=== PATIENT | male | born 1970 | race African-American/Black ===

== ENCOUNTER 2016-12-03 20:20 | Emergency (ER) | payer SELFPAY ==
[~2016-12-03] VITALS: Ht 175.3 cm; Wt 70.3 kg
[2016-12-03] MEDS ORDERED: KETOROLAC TROMETHAMINE 30 MG/ML INJ. IV ONE (21:00)
[2016-12-03] MEDS ORDERED: IV NORMAL SALINE 1000ML BAG 1,000 ML IV ONE (21:00)
[2016-12-03] MEDS ORDERED: cloNIDine HCL 0.1 MG TABLET PO ONE ×2 (21:00→22:15)
[2016-12-03 21:09] LABS: BASO # 0.1 x10^3/uL (0.0-0.2); BASO % 1 % (0-3); EOS % 3 % (0-3); HEMATOCRIT 42.2 % (39.0-53.0); HEMOGLOBIN 13.7 g/dL (13.0-17.5); LYMPH # 2.8 x10^3/uL (1.0-4.8); LYMPH % 44 % (24-48); MEAN CORPUSCULAR HEMOGLOBIN 25 pg (25-35); MEAN CORPUSCULAR HGB CONC 32 g/dL (31-37); MEAN CORPUSCULAR VOLUME 77 fL (79-100); MONO % 12 % (0-9); NEUT % 40 % (31-73); PLATELET COUNT 203 x10^3/uL (140-400); RED BLOOD COUNT 5.46 x10^6/uL (4.30-5.70); RED CELL DISTRIBUTION WIDTH 14.5 % (11.5-14.5); WHITE BLOOD COUNT 6.4 x10^3/uL (4.0-11.0)
[2016-12-03 21:11] LABS: BILIRUBIN,URINE NEGATIVE (NEG); GLUCOSE,URINE NEGATIVE (NEG); NITRITE,URINE NEGATIVE (NEG); PH,URINE 5.5; PROTEIN,URINE NEGATIVE (NEG-TRACE); UROBILINOGEN,URINE 0.2 mg/dL (0.2 mg/dL)
[2016-12-03 21:18] LABS: CALCIUM 9.5 mg/dL (8.5-10.1); CREATININE 1.2 mg/dL (0.7-1.3); GFR 78.2; POTASSIUM 3.3 mmol/L (3.5-5.1)
[2016-12-03 21:23] LABS: ALBUMIN 4.4 g/dL (3.4-5.0); ALBUMIN/GLOBULIN RATIO 1.2 (1.0-1.7); TOTAL BILIRUBIN 0.6 mg/dL (0.2-1.0); TOTAL PROTEIN 8.2 g/dL (6.4-8.2)
[2016-12-03 21:24] LABS: BACTERIA,URINE FEW /HPF (0-FEW); SQUAMOUS EPITHELIAL CELL,UR OCC /LPF; WBC,URINE OCC /HPF (0-4)
--- NOTE | 2016-12-03 21:27 | PHYS DOC ---
Past Medical History Past Medical History: No Pertinent History Additional Past Medical Histor: Does not go to PCP. Has been told high BP before, but no meds or FU Alcohol Use: Occasionally Drug Use: None Adult General Chief Complaint Chief Complaint: ABDOMINAL PAIN HPI HPI Patient is a 46 year old male with history of hypertension who presents today complaining of right groin/abdominal pain for 3 weeks. Patient states whenever he bends down or bears down he feels he has a bulge on the right groin area. Patient denies any fever nausea vomiting. Denies any urgency frequency dysuria. Review of Systems Review of Systems Constitutional: Denies fever or chills [] Eyes: Denies change in visual acuity, redness, or eye pain [] HENT: Denies nasal congestion or sore throat [] Respiratory: Denies cough or shortness of breath [] Cardiovascular: No additional information not addressed in HPI [] GI: right groin/abdominal pain : Denies dysuria or hematuria [] Musculoskeletal: Denies back pain or joint pain [] Integument: Denies rash or skin lesions [] Neurologic: Denies headache, focal weakness or sensory changes [] Endocrine: Denies polyuria or polydipsia [] Current Medications Current Medications Current Medications Medications (Trade) Dose Ordered Sig/Bienvenido Start Time Stop Time Status Last Admin Dose Admin Clonidine HCl (Catapres) 0.1 mg 1X ONCE 12/03/16 21:00 12/03/16 21:03 DC Iohexol (Omnipaque 300 Mg/ml) 75 ml 1X ONCE 12/03/16 21:30 12/03/16 21:31 DC 12/03/16 21:28 75 ML Ketorolac Tromethamine (Toradol) 30 mg 1X ONCE 12/03/16 21:00 12/03/16 21:03 DC 12/03/16 21:10 30 MG Sodium Chloride 1,000 ml @ 1,000 mls/hr 1X ONCE 12/03/16 21:00 12/03/16 21:59 12/03/16 21:10 1,000 MLS/HR Allergies Allergies Allergies Coded Allergies Type Severity Reaction Last Updated Verified No Known Drug Allergies 12/03/16 No Physical Exam Physical Exam Constitutional: Well developed, well nourished, no acute distress, non-toxic appearance. [] HENT: Normocephalic, atraumatic, bilateral external ears normal, oropharynx moist, no oral exudates, nose normal. [] Eyes: PERRLA, EOMI, conjunctiva normal, no discharge. [] Neck: Normal range of motion, no tenderness, supple, no stridor. [] Cardiovascular:Heart rate regular rhythm, no murmur [] Lungs & Thorax: Bilateral breath sounds clear to auscultation [] Abdomen: Flat abdomen. Bowel sounds normal, soft, no tenderness, no masses, no pulsatile masses. [] Male exam Right groin area appears to be swollen consistent with a hernia. Positive for right inguinal hernia on exam. Skin: Warm, dry, no erythema, no rash. [] Back: No tenderness, no CVA tenderness. [] Extremities: No tenderness, no cyanosis, no clubbing, ROM intact, no edema. [] Neurologic: Alert and oriented X 3, normal motor function, normal sensory function, no focal deficits noted. [] Psychologic: Affect normal, judgement normal, mood normal. [] Current Patient Data Vital Signs Vital Signs Date Time Temp Pulse Resp B/P (MAP) Pulse Ox O2 Delivery O2 Flow Rate FiO2 12/03/16 21:02 63 18 147/88 (107) 99 Room Air 12/03/16 20:32 99.0 99.0 Lab Values Laboratory Tests Test 12/03/16 20:36 White Blood Count 6.4 x10^3/uL (4.0-11.0) Red Blood Count 5.46 x10^6/uL (4.30-5.70) Hemoglobin 13.7 g/dL (13.0-17.5) Hematocrit 42.2 % (39.0-53.0) Mean Corpuscular Volume 77 fL (79-100) L Mean Corpuscular Hemoglobin 25 pg (25-35) Mean Corpuscular Hemoglobin Concent 32 g/dL (31-37) Red Cell Distribution Width 14.5 % (11.5-14.5) Platelet Count 203 x10^3/uL (140-400) Neutrophils (%) (Auto) 40 % (31-73) Lymphocytes (%) (Auto) 44 % (24-48) Monocytes (%) (Auto) 12 % (0-9) H Eosinophils (%) (Auto) 3 % (0-3) Basophils (%) (Auto) 1 % (0-3) Neutrophils # (Auto) 2.6 x10^3uL (1.8-7.7) Lymphocytes # (Auto) 2.8 x10^3/uL (1.0-4.8) Monocytes # (Auto) 0.8 x10^3/uL (0.0-1.1) Eosinophils # (Auto) 0.2 x10^3/uL (0.0-0.7) Basophils # (Auto) 0.1 x10^3/uL (0.0-0.2) Urine Collection Type Unknown Urine Color Yellow Urine Clarity Clear Urine pH 5.5 Urine Specific [place] 1.020 Urine Protein Negative mg/dL (NEG-TRACE) Urine Glucose (UA) Negative mg/dL (NEG) Urine Ketones (Stick) Negative mg/dL (NEG) Urine Blood Negative (NEG) Urine Nitrite Negative (NEG) Urine Bilirubin Negative (NEG) Urine Urobilinogen Dipstick 0.2 mg/dL (0.2 mg/dL) Urine Leukocyte Esterase Negative (NEG) Urine RBC 1-2 /HPF (0-2) Urine WBC Occ /HPF (0-4) Urine Squamous Epithelial Cells Occ /LPF Urine Bacteria Few /HPF (0-FEW) Urine Mucus Mod /LPF Sodium Level 139 mmol/L (136-145) Potassium Level 3.3 mmol/L (3.5-5.1) L Chloride Level 101 mmol/L (98-107) Carbon Dioxide Level 28 mmol/L (21-32) Anion Gap 10 (6-14) Blood Urea Nitrogen 15 mg/dL (8-26) Creatinine 1.2 mg/dL (0.7-1.3) Estimated GFR (Cockcroft-Gault) 78.2 BUN/Creatinine Ratio 13 (6-20) Glucose Level 92 mg/dL (70-99) Calcium Level 9.5 mg/dL (8.5-10.1) Total Bilirubin 0.6 mg/dL (0.2-1.0) Aspartate Amino Transferase (AST) 26 U/L (15-37) Alanine Aminotransferase (ALT) 22 U/L (16-63) Alkaline Phosphatase 83 U/L (46-116) Total Protein 8.2 g/dL (6.4-8.2) Albumin 4.4 g/dL (3.4-5.0) Albumin/Globulin Ratio 1.2 (1.0-1.7) Lipase 97 U/L (73-393) Laboratory Tests 12/03/16 20:36 Laboratory Tests 12/03/16 20:36 EKG EKG [] Radiology/Procedures Radiology/Procedures []PROCEDURE: CT ABD PELV W/ IV CONTRST ONLY Indication: Right lower quadrant pain for 3 weeks. Axial imaging through the abdomen and pelvis was performed after the administration of intravenous contrast. One or more of the following individualized dose reduction techniques were utilized for this examination: 1. Automated exposure control 2. Adjustment of the mA and/or kV according to patient size 3. Use of iterative reconstruction technique No prior studies are available for comparison. The lung bases are clear. The liver and gallbladder are unremarkable. The pancreas and spleen are unremarkable. No adrenal mass is detected. The kidneys are unremarkable. The aorta is nonaneurysmal. The small and large bowel loops are normal caliber. No obstruction is identified. No bowel wall thickening is seen. The appendix is unremarkable. There is no ascites. The bladder is unremarkable. IMPRESSION: No acute abnormality is detected. Electronically signed by: Gabriel Tavares MD (12/03/2016 9:42 PM) [facility] DICTATED and SIGNED BY: GABRIEL TAVARES MD DATE: 12/03/162139 CC: CYNTHIA ZARATE APRN; SANJEEV,STAFF ~ Course & Med Decision Making Course & Med Decision Making Pertinent Labs and Imaging studies reviewed. (See chart for details) Patient is in the ED with complaints of right groin/lower abdominal pain for 3 weeks. Symptoms suspicious for inguinal hernia on the right side. Patient's lab work is negative for any acute findings. Patient's significant other is warranted patient has appendicitis. CT of the abdomen and pelvic was ordered. CT of the abdomen and pelvic was negative for any acute findings. Provided patient a PCP for follow-up as well as a general surgeon. His blood pressure was in the 140s over 80s. He has history of hypertension. He is not on any medication and has never followed up. We talked about the importance of following up for high blood pressure. Dragon Disclaimer Dragon Disclaimer This electronic medical record was generated, in whole or in part, using a voice recognition dictation system. Departure Departure Impression: Primary Impression: Inguinal hernia, right Additional Impression: Hypertension Disposition: 01 HOME, SELF-CARE Condition: STABLE Referrals: NON,STAFF (PCP) follow up with a doctor from the list provided GABRIEL FIELDS MD follow up with the general surgeon for possible hernia to the right ingunial area in 2 weeks Patient Instructions: Hypertension, Inguinal Hernia, Adult Additional Instructions: You were seen with symptoms consistent of an inguinal hernia. Your blood pressure was also elevated in the 140s over 80s. Establish care with a primary care doctor. Follow-up as soon as he can. You can also follow up with the general surgeon provided for the inguinal hernia. Avoid lifting heavy items because they will make hernia issues worse. Problem Qualifiers Additional Impression: Hypertension Hypertension type: unspecified Qualified Codes: I10 - Essential (primary) hypertension CYNTHIA ZARATE OCCUPATIONAL HEALTH SPECIALIST Dec 03, 2016 21:27
[2016-12-03] MEDS ORDERED: IOHEXOL 300 MG/ML 75 ML VIAL IV ONE (21:30)
--- NOTE | 2016-12-03 21:46 | RAD ---
Indication: Right lower quadrant pain for 3 weeks. Axial imaging through the abdomen and pelvis was performed after the administration of intravenous contrast. One or more of the following individualized dose reduction techniques were utilized for this examination: 1. Automated exposure control 2. Adjustment of the mA and/or kV according to patient size 3. Use of iterative reconstruction technique No prior studies are available for comparison. The lung bases are clear. The liver and gallbladder are unremarkable. The pancreas and spleen are unremarkable. No adrenal mass is detected. The kidneys are unremarkable. The aorta is nonaneurysmal. The small and large bowel loops are normal caliber. No obstruction is identified. No bowel wall thickening is seen. The appendix is unremarkable. There is no ascites. The bladder is unremarkable. IMPRESSION: No acute abnormality is detected. Electronically signed by: Gabriel Tavares MD (12/03/2016 9:42 PM) [facility]
[2016-12-03 22:04] VITALS: BP 185/101
== END 2016-12-03 22:15 | disposition home or self-care (01) ==
LOC: ER 20:20
DX: K40.90 Unilateral inguinal hernia, without obstruction or gangrene, not specified as recurrent (principal); I10 Essential (primary) hypertension
CPT/HCPCS: 36415; 74177; 80053; 81001; 83690; 85027; 96361; 96374; 99285; J1885; J7030; Q9967

== ENCOUNTER 2017-05-16 11:43 | Emergency (ER) | payer BC | END 2017-05-16 13:04 | disposition home or self-care (01) | LOC: ER 11:43 | DX: K40.90 Unilateral inguinal hernia, without obstruction or gangrene, not specified as recurrent (principal); F17.200 Nicotine dependence, unspecified, uncomplicated; F12.10 Cannabis abuse, uncomplicated | CPT/HCPCS: 99281 ==

== ENCOUNTER 2017-06-25 06:07 | Day surgery (SDC) | payer BC ==
[2017-06-25] MEDS: IV RINGERS,LACTATED 1000ML 1,000 ML IV (06:36)
[2017-06-25] MEDS ORDERED: PROCHLORPERAZINE 10 MG/2 ML VIAL. IV (07:00)
[2017-06-25] MEDS ORDERED: fentaNYL PF VIAL 100 MCG/2 ML VIAL IV ×2 (07:00)
[2017-06-25] MEDS ORDERED: HYDROmorphone 2 MG/ML VIAL IV (07:00)
[2017-06-25] MEDS ORDERED: LIDOCAINE 1% PF 2 ML VIAL. ID (07:00)
[2017-06-25] MEDS ORDERED: ONDANSETRON PF 4 MG/2 ML VIAL. IV (07:00)
[2017-06-25] MEDS ORDERED: MIDAZOLAM HCL/PF 2 MG/2 ML VIAL. (07:34)
[2017-06-25] MEDS ORDERED: fentaNYL PF VIAL 250 MCG/5 ML VIAL (07:34)
[2017-06-25] MEDS ORDERED: ROCURONIUM 50 MG/5 ML VIAL. (07:34)
[2017-06-25] MEDS: BUPIVACAINE-EPI 0.25%-1:200000 50 ML VIAL. (08:06)
[2017-06-25] MEDS ORDERED: ESMOLOL 100 MG/10 ML VIAL. IV (08:13)
[2017-06-25] MEDS ORDERED: ONDANSETRON PF 4 MG/2 ML VIAL. (08:13)
[2017-06-25] MEDS ORDERED: DEXAMETHASONE SOD PHOS 20 MG/5 ML VIAL. (08:13)
[2017-06-25] MEDS ORDERED: PROPOFOL 20 ML IV (08:13)
[2017-06-25] MEDS ORDERED: SEVOFLURANE 61 TO 120 MINUTES. IH (08:13)
[2017-06-25] MEDS ORDERED: LIDOCAINE 2% PF Vial for OR 5 ML VIAL. ×2 (08:13→09:03)
[2017-06-25] MEDS ORDERED: hydrALAZINE 20 MG/ML VIAL. (08:36)
[2017-06-25] MEDS ORDERED: GLYCOPYRROLATE 1 MG/5 ML VIAL. (08:44)
[2017-06-25] MEDS ORDERED: NEOSTIGMINE METHYLSULFATE 5 MG/5 ML SYRINGE. (08:44)
[2017-06-25] MEDS: MORPHINE SULFATE 4 MG/ML DISP.SYRIN. IV ×2 (09:35→09:58)
[2017-06-25] MEDS: RACEPINEPHRINE 2.25% 0.5 ML NEBU. NEB (09:38)
[2017-06-25] MEDS: oxyCODONE/APAP 5/325 1 TAB TABLET PO (10:16)
== END 2017-06-25 10:54 | disposition home or self-care (01) ==
LOC: SURG 06:07
DX: K40.90 Unilateral inguinal hernia, without obstruction or gangrene, not specified as recurrent (principal); I10 Essential (primary) hypertension; F17.210 Nicotine dependence, cigarettes, uncomplicated
CPT/HCPCS: 49650; C1781; J0360; J0690; J1100; J2250; J2270; J2405; J2704; J2710; J3010; J3490; J7120

== ENCOUNTER 2019-07-16 13:59 | Emergency (ER) | payer SELFPAY ==
[~2019-07-16] VITALS: Ht 180.3 cm; Wt 80.9 kg
[~2019-07-16 13:59] MED LIST: ACET500T33 PO; IBUP200T44 PO; OXYC1TAB15 PO
[2019-07-16] MEDS ORDERED: AMOX1TAB61 PO (15:04)
--- NOTE | 2019-07-16 15:04 | PHYS DOC ---
Past Medical History Past Medical History: Other Additional Past Medical Histor: Has been told high BP before, but no meds or FU, right inguinal hernia Past Surgical History: No Surgical History Smoking Status: Current Every Day Smoker Alcohol Use: Occasionally Drug Use: Marijuana Adult General Chief Complaint Chief Complaint: ANIMAL BITE HPI HPI Patient is a 49 year old Male who presents with patient states he was walking his dog when 2 other dogs came up out of nowhere started fighting with his dog today. Patient states he does not know the dog's. Patient states he does not know what kind of dogs they were. Right lateral upper calf but just below knee joint 3 puncture wounds with controlled bleeding. Also a Left inner upper thigh with 2 puncture wounds with bleeding controlled. Patient states he is up-to-date on tetanus shot. Patient rates his pain a 8 out of 10. Patient still able to walk with a steady gait. Review of Systems Review of Systems Integument: Denies rash or skin lesions. dog bites to left inner thight and right lateral leg. [] All other systems were reviewed and found to be within normal limits, except as documented in this note. Allergies Allergies Allergies Coded Allergies Type Severity Reaction Last Updated Verified No Known Drug Allergies 06/25/17 No Physical Exam Physical Exam Constitutional: Well developed, well nourished, no acute distress, non-toxic appearance. [] HENT: Normocephalic, atraumatic, bilateral external ears normal, oropharynx moist, no oral exudates, nose normal. [] Eyes: PERRLA, EOMI, conjunctiva normal, no discharge. [] Neck: Normal range of motion, no tenderness, supple, no stridor. [] Cardiovascular:Heart rate regular rhythm, no murmur [] Lungs & Thorax: Bilateral breath sounds clear to auscultation [] Abdomen: Bowel sounds normal, soft, no tenderness, no masses, no pulsatile masses. [] Skin: Warm, dry, no erythema, no rash. Dog bites to left upper inner thigh and right lateral leg.[] Back: No tenderness, no CVA tenderness. [] Extremities: No tenderness, no cyanosis, no clubbing, ROM intact, no edema. [] Neurologic: Alert and oriented X 3, normal motor function, normal sensory function, no focal deficits noted. [] Psychologic: Affect normal, judgement normal, mood normal. [] EKG EKG [] Radiology/Procedures Radiology/Procedures [] Course & Med Decision Making Course & Med Decision Making Pertinent Labs and Imaging studies reviewed. (See chart for details) Patient has wounds as described in HPI. Wounds are irrigated with copious saline and chlorhexidine. There is no foreign bodies seen. Edges are not approximated. No ligament or muscle deep tissue injury. There is 1+ swelling around the bites. Patient refuses any rabies shots at this time. Animal control has been called. Patient is placed on Augmentin antibiotic and to follow-up in 48 hours for wound checks. Patient is to keep the areas clean with soap and water and covered. [] Dragon Disclaimer Dragon Disclaimer This electronic medical record was generated, in whole or in part, using a voice recognition dictation system. Departure Departure Impression: Primary Impression: Dog bite Disposition: 01 HOME, SELF-CARE Condition: STABLE Referrals: Cricket GILLIAM MD (PCP) Patient Instructions: Animal Bite Additional Instructions: Follow up with 48 hours for a wound check. Keep clean and covered. Take medication with food and as prescribed. Scripts Amoxicillin/Potassium Clav (AUGMENTIN 875-125 TABLET) 1 Each Tablet 1 TAB PO BID for 10 Days, #20 TAB 0 Refills Prov: DEANN COTTON APRN 07/16/19 Problem Qualifiers Primary Impression: Dog bite Encounter type: initial encounter Qualified Codes: W54.0XXA - Bitten by dog, initial encounter DEANN COTTON APRN Jul 16, 2019 15:04
[2019-07-16 15:40] VITALS: BP 175/107
== END 2019-07-16 15:40 | disposition home or self-care (01) ==
LOC: ER 13:59
DX: S71.152A Open bite, left thigh, initial encounter (principal); S81.851A Open bite, right lower leg, initial encounter; F17.200 Nicotine dependence, unspecified, uncomplicated; F12.90 Cannabis use, unspecified, uncomplicated; W54.0XXA Bitten by dog, initial encounter; Y93.89 Activity, other specified; Y92.89 Other specified places as the place of occurrence of the external cause; Y99.8 Other external cause status
CPT/HCPCS: 99283